=== PATIENT | male | born 1935 | race Caucasian/White ===

== ENCOUNTER 2020-11-15 03:02 | Inpatient (IN) | payer MEDICARE, OTHER ==
[~2020-11-15] VITALS: Ht 170.2 cm; Wt 75.8 kg
--- NOTE | 2020-11-15 03:15 | NUR ---
D/C bipap to test O2 sat and resp effort.
--- NOTE | 2020-11-15 03:24 | NUR ---
[facility]. Patient presented to their facility in resp distress c/o SOB and CP x2-3 days. [facility] reported that patient's HR was in the 170s-180s and was difficult to differentiate between SVT and afib. Patient received Metoprolol which dropped his BP dramatically and resp status worsened. He was then placed on a Dopamine infusion. Patient was placed on Bipap for his resp distress. Dopamine infusion was d/c at 0140. Upon arrival, patient on Bipap and stating he feels better. Afib on the monitor. BP stable with no infusions. AAOx4.
--- NOTE | 2020-11-15 03:25 | NUR ---
Currently, patient denies CP. States when on Bipap, he is not SOB.
[2020-11-15] MEDS ORDERED: DILTIAZEM 125 MG in SODIUM CHLORIDE 0.9% 100 ML IV PRN (03:30)
--- NOTE | 2020-11-15 03:45 | NUR ---
Patient still feeling SOB. Sats between 89-91%. Bedside US performed by ERP. Patient put back on Bipap. Tolerating well.
[2020-11-15] MEDS ORDERED: PLEASE ENTER ALLERGIES MC SCH (04:00)
[2020-11-15] MEDS ORDERED: AZITHROMYCIN 500 MG in SODIUM CHLORIDE 0.9% 250 ML IV ONE (04:00)
[2020-11-15] MEDS ORDERED: HEPARIN 5,000 UNITS/ML, 1ML IV ONE (04:00)
--- NOTE | 2020-11-15 04:00 | NUR ---
Patient states he needs to have a BM. Agreed to bedpan. Stepped out of the room for privacy. Patient pulled the bipap off because "it's blowing hot air and making me sweat." Patient got up out of bed stating, "I just want to sit down to use the bathroom." Advised patient he needed to at least be on the oxymask in the meantime. Called respiratory to assist. Provided bedside commode. Respiratory arrived. Patient had a large BM. Patient placed back on bipap and tolerated well.
[2020-11-15] MEDS ORDERED: HYDROmorphone 2 MG/ML, 1ML IVPush PRN (04:30)
[2020-11-15] MEDS ORDERED: DEXTROSE 4 GM TAB.CHEW PO PRN (04:30)
[2020-11-15] MEDS ORDERED: ACETAMINOPHEN 325 MG TABLET PO PRN (04:30)
[2020-11-15] MEDS ORDERED: GLUCAGON 1 MG IM PRN (04:30)
[2020-11-15] MEDS ORDERED: NITROGLYCERIN 0.4 MG BOTTLE (25 TABS) SL PRN ×2 (04:30→22:00)
[2020-11-15] MEDS ORDERED: NITROGLYCERIN 0.4 MG/SPRAY SL PRN (04:30)
[2020-11-15] MEDS ORDERED: METOPROLOL 1 MG/ML, 5ML IVPush PRN (04:30)
[2020-11-15] MEDS ORDERED: POLYETHYLENE GLYCOL 17 GM PACKET PO PRN (04:30)
[2020-11-15] MEDS ORDERED: LABETALOL 5MG/ML, 20ML IVPush PRN ×2 (04:30→17:00)
[2020-11-15] MEDS ORDERED: DEXTROSE 50%, 50ML SYRINGE IVPush PRN (04:30)
[2020-11-15] MEDS ORDERED: MELATONIN 5 MG TABLET PO PRN (04:30)
[2020-11-15] MEDS ORDERED: HEPARIN 25,000 UNITS/250ML PMX 250 ML ONE (04:38)
[2020-11-15] MEDS ORDERED: HEPARIN 5,000 UNITS/ML, 1ML ONE (04:38)
[2020-11-15] MEDS: HEPARIN 25,000 UNITS/250ML PMX 250 ML IV PRN (05:09)
[2020-11-15] MEDS ORDERED: ONDANSETRON 2MG/ML, 2ML ONE (05:14)
[2020-11-15] MEDS: ONDANSETRON 2MG/ML, 2ML IVPush PRN (05:16)
--- NOTE | 2020-11-15 05:38 | NUR ---
Report given to JOHN Galo. Patient to be transferred to room 558.
[2020-11-15] MEDS: CEFTRIAXONE 2 GM in DEXTROSE 5% 50 ML IVPB SCH (06:05)
[2020-11-15] MEDS: INSULIN LISPRO 100 UNITS/ML, PEN SQ-INSULIN SCH ×4 (07:30→22:07)
[2020-11-15 07:33] LABS: MICROSCOPIC AUTO
[2020-11-15] MEDS: SODIUM CHLORIDE FLUSH 10ML SYR IVF SCH ×2 (09:00→21:00)
[2020-11-15] MEDS ORDERED: OXYC-302 PO (11:36)
[2020-11-15] MEDS ORDERED: TRAM50TA2 PO (11:53)
[2020-11-15] MEDS ORDERED: LOSA50TA14 PO (11:55)
[2020-11-15] MEDS ORDERED: AMLO5TAB4 PO (11:55)
[2020-11-15] MEDS ORDERED: METF10007 PO (11:57)
[2020-11-15] MEDS: OXYcodone/APAP 5/325MG TABLET PO PRN ×2 (15:23→21:28)
[2020-11-15] MEDS ORDERED: DILTIAZEM 125 MG in SODIUM CHLORIDE 0.9% 100 ML IV SCH (17:00)
[2020-11-15 17:21] LABS: BASOPHILS % (AUTO) 1 % (0-1); EOSINOPHILS % (AUTO) 0 % (1-7); LYMPHOCYTES % (AUTO) 15 % (22-44); MEAN CORPUSCULAR HEMOGLOBIN 30.2 pg (27.5-34.5); MEAN CORPUSCULAR HGB CONC 33.8 g/dL (33.2-36.2); MEAN PLATELET VOLUME 9.8 fL (7.4-10.4); MONOCYTES % (AUTO) 9 % (2-9); NEUTROPHILS % (AUTO) 75 % (42-75); PLATELET COUNT 141 x10^3/uL (130-400); RED BLOOD COUNT 4.07 x10^6/uL (4.38-5.82)
[2020-11-15 17:29] LABS: ALANINE AMINOTRANSFERASE 29 U/L (12-78); ANION GAP 7 mmol/L (5-15); CALCIUM 8.6 mg/dL (8.5-10.1); CHLORIDE 105 mmol/L (98-107); CREATININE 0.98 mg/dL (0.7-1.3)
[2020-11-15] MEDS ORDERED: MAGNESIUM SULFATE PMX 2GM/50ML 50 ML IV ONE (17:30)
[2020-11-15 17:31] LABS: ALKALINE PHOSPHATASE 36 U/L (45-117); BILIRUBIN,TOTAL 0.7 mg/dL (0.2-1.0); TOTAL PROTEIN 6.6 g/dL (6.4-8.2)
[2020-11-15] MEDS: HEPARIN 5,000 UNITS/ML, 1ML IV PRN (18:21)
[2020-11-15 21:34] VITALS: BP 128/62
[2020-11-15 23:11] VITALS: BP 107/68
[2020-11-15 23:30] VITALS: BP 120/69
[2020-11-15] MEDS ORDERED: FUROSEMIDE 20 MG/2 ML ONE (23:44)
[2020-11-16] MEDS ORDERED: FUROSEMIDE 20 MG/2 ML IV ONE
[2020-11-16 00:50] VITALS: BP 114/72
[2020-11-16] MEDS ORDERED: OMEP40CA8 PO (01:30)
[2020-11-16] MEDS ORDERED: OMEPRAZOLE 20 MG CAPSULE.DR PO ONE (02:00)
[2020-11-16] MEDS: OXYcodone/APAP 5/325MG TABLET PO PRN ×2 (03:36→21:41)
[2020-11-16 05:53] LABS: BASOPHILS % (AUTO) 0 % (0-1); EOSINOPHILS % (AUTO) 0 % (1-7); LYMPHOCYTES % (AUTO) 9 % (22-44); MEAN CORPUSCULAR HEMOGLOBIN 30.3 pg (27.5-34.5); MEAN CORPUSCULAR HGB CONC 33.7 g/dL (33.2-36.2); MEAN PLATELET VOLUME 9.9 fL (7.4-10.4); MONOCYTES % (AUTO) 7 % (2-9); NEUTROPHILS % (AUTO) 84 % (42-75); PLATELET COUNT 141 x10^3/uL (130-400); RED CELL DISTRIBUTION WIDTH 14.1 % (9.4-14.8)
[2020-11-16 06:01] LABS: CHLORIDE 105 mmol/L (98-107)
[2020-11-16 06:05] LABS: ALBUMIN 3.2 g/dL (3.4-5.0); ANION GAP 9 mmol/L (5-15); CALCIUM 8.4 mg/dL (8.5-10.1); CHOLESTEROL, TOTAL 103 mg/dL (140-239)
[2020-11-16 06:08] LABS: ALANINE AMINOTRANSFERASE 26 U/L (12-78); ALKALINE PHOSPHATASE 36 U/L (45-117); BILIRUBIN,TOTAL 0.9 mg/dL (0.2-1.0); CHOL/HDL RATIO 1.9; CREATININE 0.95 mg/dL (0.7-1.3); HDL CHOL % 51 % (26-37); HDL CHOLESTEROL (DIRECT) 53 mg/dL (40-60); LDL CHOLESTEROL,CALCULATED 32 mg/dL (54-169); LDL/HDL RATIO 0.6 (0.5-3.0); TOTAL PROTEIN 6.8 g/dL (6.4-8.2); TRIGLYCERIDES 91 mg/dL (50-200); VLDL CHOLESTEROL 18 mg/dL (0-25)
[2020-11-16] MEDS: HEPARIN 5,000 UNITS/ML, 1ML IV PRN ×2 (06:32→21:01)
[2020-11-16] MEDS: CEFTRIAXONE 2 GM in DEXTROSE 5% 50 ML IVPB SCH (06:32)
[2020-11-16] MEDS: INSULIN LISPRO 100 UNITS/ML, PEN SQ-INSULIN SCH ×4 (08:13→21:02)
[2020-11-16] MEDS: AZITHROMYCIN 500 MG TABLET PO SCH (08:13)
[2020-11-16] MEDS: SODIUM CHLORIDE FLUSH 10ML SYR IVF SCH ×2 (08:14→21:02)
[2020-11-16 08:18] VITALS: BP 123/67
[2020-11-16] MEDS: HEPARIN 25,000 UNITS/250ML PMX 250 ML IV PRN (08:40)
[2020-11-16] MEDS: ONDANSETRON 2MG/ML, 2ML IVPush PRN (09:41)
[2020-11-16] MEDS: POTASSIUM CHLORIDE 20 MEQ TAB.ER.PRT PO SCH ×2 (11:46→17:28)
[2020-11-16] MEDS: SIMETHICONE 80 MG CHEW TAB PO PRN (11:47)
[2020-11-16] MEDS ORDERED: DIGOXIN 0.25 MG/ML, 2ML IVPush ONE (12:00)
[2020-11-16] MEDS ORDERED: FUROSEMIDE 40 MG/4 ML IV ONE (12:00)
[2020-11-16] MEDS: DILTIAZEM 125 MG in SODIUM CHLORIDE 0.9% 100 ML IV SCH (14:08)
[2020-11-16 14:37] VITALS: BP 138/88
[2020-11-16] MEDS: DIGOXIN 0.25 MG/ML, 2ML IVPush SCH ×2 (15:42→21:01)
[2020-11-16 20:21] VITALS: BP 124/84
[2020-11-17 01:07] VITALS: BP 132/76
[2020-11-17 03:16] LABS: BASOPHILS % (AUTO) 1 % (0-1); EOSINOPHILS % (AUTO) 0 % (1-7); LYMPHOCYTES % (AUTO) 16 % (22-44); MEAN CORPUSCULAR HEMOGLOBIN 30.3 pg (27.5-34.5); MEAN CORPUSCULAR HGB CONC 34.1 g/dL (33.2-36.2); MEAN PLATELET VOLUME 9.9 fL (7.4-10.4); MONOCYTES % (AUTO) 10 % (2-9); NEUTROPHILS % (AUTO) 74 % (42-75); PLATELET COUNT 143 x10^3/uL (130-400); RED BLOOD COUNT 3.98 x10^6/uL (4.38-5.82); RED CELL DISTRIBUTION WIDTH 13.7 % (9.4-14.8)
[2020-11-17 03:26] LABS: ALANINE AMINOTRANSFERASE 24 U/L (12-78); ALBUMIN 2.7 g/dL (3.4-5.0); ANION GAP 6 mmol/L (5-15); CALCIUM 8.4 mg/dL (8.5-10.1); CHLORIDE 103 mmol/L (98-107)
[2020-11-17 03:29] LABS: ALKALINE PHOSPHATASE 34 U/L (45-117); BILIRUBIN,TOTAL 0.7 mg/dL (0.2-1.0); CREATININE 0.87 mg/dL (0.7-1.3); TOTAL PROTEIN 6.5 g/dL (6.4-8.2)
[2020-11-17] MEDS: DILTIAZEM 125 MG in SODIUM CHLORIDE 0.9% 100 ML IV SCH (05:42)
[2020-11-17] MEDS: OMEPRAZOLE 20 MG CAPSULE.DR PO SCH (05:43)
[2020-11-17] MEDS: CEFTRIAXONE 2 GM in DEXTROSE 5% 50 ML IVPB SCH (05:43)
[2020-11-17] MEDS: OXYcodone/APAP 5/325MG TABLET PO PRN ×3 (05:43→23:46)
[2020-11-17 06:46] VITALS: BP 108/63
[2020-11-17] MEDS: POTASSIUM CHLORIDE 20 MEQ TAB.ER.PRT PO SCH ×2 (07:34→16:16)
[2020-11-17] MEDS: SODIUM CHLORIDE FLUSH 10ML SYR IVF SCH ×2 (07:34→20:32)
[2020-11-17] MEDS: AZITHROMYCIN 500 MG TABLET PO SCH (07:34)
[2020-11-17] MEDS: INSULIN LISPRO 100 UNITS/ML, PEN SQ-INSULIN SCH ×4 (07:36→20:32)
[2020-11-17] MEDS ORDERED: AMIODARONE 150 MG in DEXTROSE 5% 100 ML IV ONE (09:00)
[2020-11-17] MEDS: AMIODARONE 450 MG in DEXTROSE 5% 241 ML IV PRN ×2 (09:34→23:45)
[2020-11-17] MEDS: FILTER 0.22 MICRON IV PRN (09:35)
[2020-11-17] MEDS: HEPARIN 5,000 UNITS/ML, 1ML IV PRN ×2 (10:19→23:44)
[2020-11-17] MEDS: HEPARIN 25,000 UNITS/250ML PMX 250 ML IV PRN (10:22)
[2020-11-17] MEDS ORDERED: FUROSEMIDE 40 MG/4 ML IV ONE ×2 (10:30→11:00)
[2020-11-17 12:39] VITALS: BP 107/60
[2020-11-17 12:48] LABS: FIO2 100 %
[2020-11-17 19:26] VITALS: BP 124/65
[2020-11-18 01:54] VITALS: BP 146/85
[2020-11-18] MEDS: OMEPRAZOLE 20 MG CAPSULE.DR PO SCH (06:21)
[2020-11-18] MEDS: CEFTRIAXONE 2 GM in DEXTROSE 5% 50 ML IVPB SCH ×2 (06:21→06:33)
[2020-11-18] MEDS: AZITHROMYCIN 500 MG TABLET PO SCH (08:13)
[2020-11-18] MEDS: POTASSIUM CHLORIDE 20 MEQ TAB.ER.PRT PO SCH ×3 (08:13→16:24)
[2020-11-18] MEDS: INSULIN LISPRO 100 UNITS/ML, PEN SQ-INSULIN SCH ×4 (08:13→20:56)
[2020-11-18] MEDS: FUROSEMIDE 40 MG/4 ML IV SCH ×2 (08:14→20:42)
[2020-11-18] MEDS: ONDANSETRON 2MG/ML, 2ML IVPush PRN (08:14)
[2020-11-18] MEDS: SODIUM CHLORIDE FLUSH 10ML SYR IVF SCH ×2 (08:14→20:42)
[2020-11-18 08:16] VITALS: BP 135/77
[2020-11-18] MEDS ORDERED: AMIODARONE 150 MG in DEXTROSE 5% 100 ML IV ONE (11:00)
[2020-11-18] MEDS: FILTER 0.22 MICRON IV PRN (11:19)
[2020-11-18] MEDS: OXYcodone/APAP 5/325MG TABLET PO PRN ×2 (11:20→20:41)
[2020-11-18] MEDS: ENOXAPARIN 40 MG/0.4 ML SQ SCH (11:21)
[2020-11-18 14:42] VITALS: BP 101/56
[2020-11-18] MEDS: AMIODARONE 450 MG in DEXTROSE 5% 241 ML IV PRN (17:42)
[2020-11-18 19:35] VITALS: BP 128/55
[2020-11-18 20:39] VITALS: BP 125/82
[2020-11-19 01:36] VITALS: BP 135/81
[2020-11-19] MEDS: OXYcodone/APAP 5/325MG TABLET PO PRN ×4 (02:57→21:24)
[2020-11-19] MEDS: CEFTRIAXONE 2 GM in DEXTROSE 5% 50 ML IVPB SCH (05:56)
[2020-11-19] MEDS: OMEPRAZOLE 20 MG CAPSULE.DR PO SCH (05:56)
[2020-11-19 06:19] LABS: BASOPHILS % (AUTO) 1 % (0-1); EOSINOPHILS % (AUTO) 2 % (1-7); LYMPHOCYTES % (AUTO) 14 % (22-44); MEAN CORPUSCULAR HEMOGLOBIN 30.2 pg (27.5-34.5); MEAN CORPUSCULAR HGB CONC 34.2 g/dL (33.2-36.2); MEAN PLATELET VOLUME 9.4 fL (7.4-10.4); MONOCYTES % (AUTO) 10 % (2-9); NEUTROPHILS % (AUTO) 73 % (42-75); PLATELET COUNT 172 x10^3/uL (130-400); RED BLOOD COUNT 4.19 x10^6/uL (4.38-5.82); RED CELL DISTRIBUTION WIDTH 13.6 % (9.4-14.8)
[2020-11-19 06:25] LABS: CHLORIDE 99 mmol/L (98-107)
[2020-11-19 06:31] LABS: ANION GAP 6 mmol/L (5-15); CREATININE 0.92 mg/dL (0.7-1.3)
[2020-11-19 07:13] VITALS: BP 128/78
[2020-11-19] MEDS: POTASSIUM CHLORIDE 20 MEQ TAB.ER.PRT PO SCH ×3 (08:00→17:13)
[2020-11-19] MEDS: AZITHROMYCIN 500 MG TABLET PO SCH (08:14)
[2020-11-19] MEDS: FUROSEMIDE 40 MG/4 ML IV SCH ×2 (08:15→21:22)
[2020-11-19] MEDS: INSULIN LISPRO 100 UNITS/ML, PEN SQ-INSULIN SCH ×4 (08:16→21:23)
[2020-11-19] MEDS: AMIODARONE 450 MG in DEXTROSE 5% 241 ML IV PRN (08:28)
[2020-11-19] MEDS: SODIUM CHLORIDE FLUSH 10ML SYR IVF SCH ×2 (09:00→21:22)
[2020-11-19] MEDS: ENOXAPARIN 40 MG/0.4 ML SQ SCH (10:49)
[2020-11-19] MEDS: LOSARTAN 25MG TABLET PO SCH (10:49)
[2020-11-19 12:29] VITALS: BP 110/66
[2020-11-19 19:27] VITALS: BP 118/64
[2020-11-20] MEDS: AMIODARONE 450 MG in DEXTROSE 5% 241 ML IV PRN ×2 (00:30→17:26)
[2020-11-20 01:23] VITALS: BP 113/64
[2020-11-20 05:44] LABS: BASOPHILS % (AUTO) 1 % (0-1); EOSINOPHILS % (AUTO) 1 % (1-7); LYMPHOCYTES % (AUTO) 9 % (22-44); MEAN CORPUSCULAR HEMOGLOBIN 30.4 pg (27.5-34.5); MEAN CORPUSCULAR HGB CONC 34.3 g/dL (33.2-36.2); MEAN PLATELET VOLUME 9.3 fL (7.4-10.4); MONOCYTES % (AUTO) 13 % (2-9); NEUTROPHILS % (AUTO) 76 % (42-75); PLATELET COUNT 193 x10^3/uL (130-400); RED BLOOD COUNT 4.31 x10^6/uL (4.38-5.82); RED CELL DISTRIBUTION WIDTH 13.9 % (9.4-14.8)
[2020-11-20 05:57] LABS: ANION GAP 5 mmol/L (5-15); CALCIUM 9.3 mg/dL (8.5-10.1); CHLORIDE 95 mmol/L (98-107)
[2020-11-20] MEDS: CEFTRIAXONE 2 GM in DEXTROSE 5% 50 ML IVPB SCH (06:18)
[2020-11-20] MEDS: OMEPRAZOLE 20 MG CAPSULE.DR PO SCH (06:18)
[2020-11-20 07:07] VITALS: BP 122/73
[2020-11-20] MEDS: POTASSIUM CHLORIDE 20 MEQ TAB.ER.PRT PO SCH ×2 (08:00→08:39)
[2020-11-20] MEDS: INSULIN LISPRO 100 UNITS/ML, PEN SQ-INSULIN SCH ×4 (08:39→21:26)
[2020-11-20] MEDS: LOSARTAN 25MG TABLET PO SCH (08:39)
[2020-11-20] MEDS: FUROSEMIDE 40 MG/4 ML IV SCH (08:39)
[2020-11-20] MEDS: AZITHROMYCIN 500 MG TABLET PO SCH (08:39)
[2020-11-20] MEDS: SODIUM CHLORIDE FLUSH 10ML SYR IVF SCH ×2 (08:40→21:25)
[2020-11-20] MEDS: OXYcodone/APAP 5/325MG TABLET PO PRN ×3 (08:45→21:26)
[2020-11-20] MEDS: ENOXAPARIN 40 MG/0.4 ML SQ SCH (11:29)
[2020-11-20 13:37] VITALS: BP 110/67
[2020-11-20] MEDS: FILTER 0.22 MICRON IV PRN (17:26)
[2020-11-20 19:27] VITALS: BP 101/67
[2020-11-21 01:36] VITALS: BP 130/77
[2020-11-21] MEDS: OXYcodone/APAP 5/325MG TABLET PO PRN ×2 (03:50→18:03)
[2020-11-21 05:12] LABS: MEAN CORPUSCULAR HEMOGLOBIN 29.8 pg (27.5-34.5); MEAN CORPUSCULAR HGB CONC 33.9 g/dL (33.2-36.2); MEAN PLATELET VOLUME 9.6 fL (7.4-10.4); PLATELET COUNT 201 x10^3/uL (130-400); RED BLOOD COUNT 4.12 x10^6/uL (4.38-5.82); RED CELL DISTRIBUTION WIDTH 13.6 % (9.4-14.8)
[2020-11-21 05:14] LABS: ANION GAP 5 mmol/L (5-15); CHLORIDE 95 mmol/L (98-107); CREATININE 0.83 mg/dL (0.7-1.3)
[2020-11-21] MEDS: OMEPRAZOLE 20 MG CAPSULE.DR PO SCH (05:48)
[2020-11-21] MEDS: CEFTRIAXONE 2 GM in DEXTROSE 5% 50 ML IVPB SCH (05:48)
[2020-11-21 06:06] LABS: <PLATELET ESTIMATE> ADEQUATE; <PLT MORPHOLOGY> NORMAL PLT MORPH; <RBC MORPHOLOGY> NORMAL; EOS#(MANUAL) 0.12 x10^3/uL (0.0-0.4); EOS% (MANUAL) 1 % (1-7); LYMPH#(MANUAL) 0.97 x10^3/uL (1-3.4); LYMPHS% (MANUAL) 8 % (22-44); MONOS#(MANUAL) 0.73 x10^3/uL (0.3-2.7); MONOS% (MANUAL) 6 % (2-9); REACTIVE LYMPHS # (MANUAL) 0.36 x10^3/uL (0-0); REACTIVE LYMPHS % (MANUAL) 3 % (0-0); SEG#(MANUAL) 9.92 x10^3/uL (1.8-6.8); SEGS% (MANUAL) 82 % (42-75)
[2020-11-21 06:56] VITALS: BP 118/77
[2020-11-21] MEDS: INSULIN LISPRO 100 UNITS/ML, PEN SQ-INSULIN SCH ×4 (09:17→20:41)
[2020-11-21] MEDS: FILTER 0.22 MICRON IV PRN (09:18)
[2020-11-21] MEDS: AMIODARONE 450 MG in DEXTROSE 5% 241 ML IV PRN (09:18)
[2020-11-21] MEDS: METOPROLOL SUCCINATE 25 MG TAB.ER.24H PO SCH (09:18)
[2020-11-21] MEDS: SPIRONOLACTONE 25 MG TABLET PO SCH (09:18)
[2020-11-21] MEDS: AZITHROMYCIN 500 MG TABLET PO SCH (09:18)
[2020-11-21] MEDS: FUROSEMIDE 40 MG TABLET PO SCH (09:19)
[2020-11-21] MEDS: LOSARTAN 25MG TABLET PO SCH (09:19)
[2020-11-21] MEDS: SODIUM CHLORIDE FLUSH 10ML SYR IVF SCH ×2 (09:20→20:41)
[2020-11-21 12:17] VITALS: BP 129/73
[2020-11-21] MEDS: ENOXAPARIN 40 MG/0.4 ML SQ SCH (16:34)
[2020-11-21 19:44] VITALS: BP 101/64
[2020-11-22] MEDS: OXYcodone/APAP 5/325MG TABLET PO PRN ×2 (00:19→15:17)
[2020-11-22] MEDS: AMIODARONE 450 MG in DEXTROSE 5% 241 ML IV PRN (00:51)
[2020-11-22 01:30] VITALS: BP 103/62
[2020-11-22] MEDS: METOPROLOL SUCCINATE 25 MG TAB.ER.24H PO SCH (06:03)
[2020-11-22] MEDS: OMEPRAZOLE 20 MG CAPSULE.DR PO SCH (06:03)
[2020-11-22] MEDS: CEFTRIAXONE 2 GM in DEXTROSE 5% 50 ML IVPB SCH (06:04)
[2020-11-22 06:38] LABS: BASOPHILS % (AUTO) 1 % (0-1); EOSINOPHILS % (AUTO) 3 % (1-7); LYMPHOCYTES % (AUTO) 13 % (22-44); MEAN CORPUSCULAR HEMOGLOBIN 29.8 pg (27.5-34.5); MEAN CORPUSCULAR HGB CONC 33.4 g/dL (33.2-36.2); MEAN PLATELET VOLUME 9.8 fL (7.4-10.4); MONOCYTES % (AUTO) 13 % (2-9); NEUTROPHILS % (AUTO) 70 % (42-75); PLATELET COUNT 212 x10^3/uL (130-400); RED BLOOD COUNT 4.05 x10^6/uL (4.38-5.82); RED CELL DISTRIBUTION WIDTH 13.7 % (9.4-14.8)
[2020-11-22 06:48] LABS: ALBUMIN 2.6 g/dL (3.4-5.0); ANION GAP 3 mmol/L (5-15); CALCIUM 9.1 mg/dL (8.5-10.1); CHLORIDE 96 mmol/L (98-107)
[2020-11-22 06:53] LABS: ALANINE AMINOTRANSFERASE 19 U/L (12-78); ALKALINE PHOSPHATASE 43 U/L (45-117); BILIRUBIN,TOTAL 0.5 mg/dL (0.2-1.0); CREATININE 0.86 mg/dL (0.7-1.3); TOTAL PROTEIN 6.8 g/dL (6.4-8.2)
[2020-11-22 06:55] VITALS: BP 119/68
[2020-11-22] MEDS: LOSARTAN 25MG TABLET PO SCH (07:45)
[2020-11-22] MEDS: SPIRONOLACTONE 25 MG TABLET PO SCH (07:45)
[2020-11-22] MEDS: FUROSEMIDE 40 MG TABLET PO SCH (07:45)
[2020-11-22] MEDS: INSULIN LISPRO 100 UNITS/ML, PEN SQ-INSULIN SCH ×4 (07:45→21:14)
[2020-11-22] MEDS: SODIUM CHLORIDE FLUSH 10ML SYR IVF SCH ×2 (07:46→21:13)
[2020-11-22 12:27] VITALS: BP 155/69
[2020-11-22] MEDS: ENOXAPARIN 40 MG/0.4 ML SQ SCH (16:48)
[2020-11-22 21:10] VITALS: BP 144/77
[2020-11-22] MEDS: AMIODARONE 200 MG TABLET PO SCH (21:13)
[2020-11-23 01:36] VITALS: BP 147/72
[2020-11-23] MEDS: SIMETHICONE 80 MG CHEW TAB PO PRN (05:46)
[2020-11-23] MEDS: METOPROLOL SUCCINATE 25 MG TAB.ER.24H PO SCH (05:47)
[2020-11-23] MEDS: OXYcodone/APAP 5/325MG TABLET PO PRN ×3 (05:47→22:48)
[2020-11-23] MEDS: OMEPRAZOLE 20 MG CAPSULE.DR PO SCH (05:47)
[2020-11-23] MEDS: CEFTRIAXONE 2 GM in DEXTROSE 5% 50 ML IVPB SCH (06:12)
[2020-11-23 07:02] VITALS: BP 147/86
[2020-11-23] MEDS: FUROSEMIDE 40 MG TABLET PO SCH (08:02)
[2020-11-23] MEDS: AMIODARONE 200 MG TABLET PO SCH ×2 (08:02→20:46)
[2020-11-23] MEDS: SPIRONOLACTONE 25 MG TABLET PO SCH (08:02)
[2020-11-23] MEDS: SODIUM CHLORIDE FLUSH 10ML SYR IVF SCH ×2 (08:02→20:45)
[2020-11-23] MEDS: LOSARTAN 25MG TABLET PO SCH (08:02)
[2020-11-23] MEDS: INSULIN LISPRO 100 UNITS/ML, PEN SQ-INSULIN SCH ×4 (08:09→20:46)
[2020-11-23 12:58] VITALS: BP 151/86
[2020-11-23] MEDS ORDERED: VERAPAMIL 2.5 MG/ML, 2ML ONE (14:59)
[2020-11-23] MEDS ORDERED: BIVALIRUDIN 250 MG ONE (14:59)
[2020-11-23] MEDS ORDERED: FENTANYL PF 100 MCG/2ML ONE (14:59)
[2020-11-23] MEDS ORDERED: MIDAZOLAM 1 MG/ML, 2ML ONE (15:00)
[2020-11-23] MEDS ORDERED: LIDOCAINE-MPF 1%, 5ML ONE (15:00)
[2020-11-23] MEDS ORDERED: HEPARIN 1,000 UNITS/ML, 10ML ONE (15:00)
[2020-11-23] MEDS: ENOXAPARIN 40 MG/0.4 ML SQ SCH (18:12)
[2020-11-23 18:58] VITALS: BP 137/77
[2020-11-24 01:38] VITALS: BP 127/65
[2020-11-24 05:49] LABS: BASOPHILS % (AUTO) 1 % (0-1); EOSINOPHILS % (AUTO) 1 % (1-7); LYMPHOCYTES % (AUTO) 13 % (22-44); MEAN CORPUSCULAR HEMOGLOBIN 29.7 pg (27.5-34.5); MEAN CORPUSCULAR HGB CONC 33.9 g/dL (33.2-36.2); MEAN PLATELET VOLUME 9.5 fL (7.4-10.4); MONOCYTES % (AUTO) 11 % (2-9); NEUTROPHILS % (AUTO) 74 % (42-75); PLATELET COUNT 291 x10^3/uL (130-400); RED BLOOD COUNT 4.18 x10^6/uL (4.38-5.82); RED CELL DISTRIBUTION WIDTH 14.2 % (9.4-14.8)
[2020-11-24 06:00] LABS: ALBUMIN 2.7 g/dL (3.4-5.0); ANION GAP 8 mmol/L (5-15); CALCIUM 8.4 mg/dL (8.5-10.1); CHLORIDE 99 mmol/L (98-107)
[2020-11-24] MEDS ORDERED: ENOXAPARIN 80 MG/0.8 ML SQ SCH (06:00)
[2020-11-24 06:03] LABS: ALANINE AMINOTRANSFERASE 19 U/L (12-78); ALKALINE PHOSPHATASE 49 U/L (45-117); BILIRUBIN,TOTAL 0.5 mg/dL (0.2-1.0); CREATININE 0.91 mg/dL (0.7-1.3); TOTAL PROTEIN 7.1 g/dL (6.4-8.2)
[2020-11-24] MEDS: METOPROLOL SUCCINATE 25 MG TAB.ER.24H PO SCH (06:11)
[2020-11-24] MEDS: OMEPRAZOLE 20 MG CAPSULE.DR PO SCH (06:11)
[2020-11-24] MEDS: OXYcodone/APAP 5/325MG TABLET PO PRN (06:11)
[2020-11-24 07:25] VITALS: BP 127/45
[2020-11-24] MEDS: FUROSEMIDE 40 MG TABLET PO SCH (08:18)
[2020-11-24] MEDS: AMIODARONE 200 MG TABLET PO SCH (08:19)
[2020-11-24] MEDS: SPIRONOLACTONE 25 MG TABLET PO SCH (08:19)
[2020-11-24] MEDS: LOSARTAN 25MG TABLET PO SCH (08:19)
[2020-11-24] MEDS: INSULIN LISPRO 100 UNITS/ML, PEN SQ-INSULIN SCH ×2 (08:22→12:01)
[2020-11-24] MEDS: SODIUM CHLORIDE FLUSH 10ML SYR IVF SCH (08:55)
[2020-11-24] MEDS ORDERED: APIXABAN 5 MG TABLET PO SCH ×2 (09:30→21:00)
[2020-11-24] MEDS ORDERED: [UNRECOGNIZED DRUG - REMARK] MC SCH (09:30)
[2020-11-24] MEDS ORDERED: LOSA25TA25 PO (13:12)
[2020-11-24] MEDS ORDERED: FURO40TA6 PO (13:12)
[2020-11-24] MEDS ORDERED: APIX5TAB PO (13:12)
[2020-11-24] MEDS ORDERED: AMIO200T42 PO (13:12)
[2020-11-24] MEDS ORDERED: METO25TA91 PO (13:12)
[2020-11-24] MEDS ORDERED: SPIR25TA PO (13:12)
[2020-11-24 13:15] VITALS: BP 126/60
== END 2020-11-24 15:45 | disposition home health service (06) | DRG 280 ==
LOC: ED 05:23 → EDIP 05:39 → CCU 05:43 → 5SO 19:10
PROVIDERS: ADMIT Internal Medicine; ATTEND Internal Medicine
PROC: 0T9B70Z Drainage of Bladder with Drainage Device, Via Natural or Artificial Opening (ICD-10-PCS; 2020-11-15)
PROC: 4A023N7 Measurement of Cardiac Sampling and Pressure, Left Heart, Percutaneous Approach (ICD-10-PCS; principal; 2020-11-23)
PROC: B2111ZZ Fluoroscopy of Multiple Coronary Arteries using Low Osmolar Contrast (ICD-10-PCS; 2020-11-23)
PROC: B2151ZZ Fluoroscopy of Left Heart using Low Osmolar Contrast (ICD-10-PCS; 2020-11-23)
DX: I48.0 Paroxysmal atrial fibrillation (principal); I50.23 Acute on chronic systolic (congestive) heart failure; I21.A1 Myocardial infarction type 2; J18.9 Pneumonia, unspecified organism; J96.21 Acute and chronic respiratory failure with hypoxia; E87.1 Hypo-osmolality and hyponatremia; D68.69 Other thrombophilia; I82.621 Acute embolism and thrombosis of deep veins of right upper extremity; I25.10 Atherosclerotic heart disease of native coronary artery without angina pectoris; I47.2 Ventricular tachycardia; I35.0 Nonrheumatic aortic (valve) stenosis; Z20.822 Contact with and (suspected) exposure to COVID-19; D64.9 Anemia, unspecified; E11.9 Type 2 diabetes mellitus without complications; E78.5 Hyperlipidemia, unspecified; F19.10 Other psychoactive substance abuse, uncomplicated; I11.0 Hypertensive heart disease with heart failure; Z96.649 Presence of unspecified artificial hip joint; G89.29 Other chronic pain; I25.5 Ischemic cardiomyopathy; I27.20 Pulmonary hypertension, unspecified; I49.3 Ventricular premature depolarization; I80.8 Phlebitis and thrombophlebitis of other sites; K21.9 Gastro-esophageal reflux disease without esophagitis; M19.90 Unspecified osteoarthritis, unspecified site; N40.0 Benign prostatic hyperplasia without lower urinary tract symptoms; Z86.16 Personal history of COVID-19; Z87.891 Personal history of nicotine dependence; Z79.899 Other long term (current) drug therapy
CPT/HCPCS: 36415; 36600; 71045; 80047; 80048; 80053; 80061; 81001; 82803; 82962; 83036; 83735; 83880; 84145; 84443; 84484; 85025; 85520; 87040; 87081; 93005; 93306; 93458; 93970; 94660; 96374; 96375; 99156; 99157; C1760; C1769; C1894; G0378; J0456; J0583; J0696; J1644; J1650; J1940; J2250; J2405; J3010; J7060; U0005; J0282; J1160; J1815; J3475; J7050; Q9967; U0003